=== PATIENT | female | born 1985 | race African-American/Black ===

== ENCOUNTER 2017-05-05 17:46 | Emergency (ER) | payer OTHER ==
[~2017-05-05] VITALS: Ht 167.6 cm; Wt 124.5 kg
[2017-05-05] MEDS ORDERED: famotidine 20mg tablet PO ONE (20:20)
[2017-05-05] MEDS ORDERED: predniSONE 20 mg tablet PO ONE (20:20)
[2017-05-05] MEDS ORDERED: diphenhydrAMINE 25mg capsule PO ONE (20:20)
[2017-05-05] MEDS ORDERED: METH4TAB81 PO (20:35)
[2017-05-05] MEDS ORDERED: DIPH25CA83 PO (20:35)
[2017-05-05] MEDS ORDERED: FAMO-128 PO (20:35)
[2017-05-05] MEDS ORDERED: EPIN0.3P8 IM (20:35)
[2017-05-05 20:47] VITALS: BP 162/107
== END 2017-05-05 20:49 | disposition home or self-care (01) ==
LOC: ER 17:47
DX: T78.3XXA Angioneurotic edema, initial encounter (principal); I10 Essential (primary) hypertension; Z91.013 Allergy to seafood
CPT/HCPCS: 99284; J7512; Q0163